=== PATIENT | female | born 1990 | race African-American/Black ===

== ENCOUNTER 2021-01-08 05:55 | Inpatient (IN) | payer OTHER ==
[2021-01-08] MEDS ORDERED: ELECTROLYTE-148 SOLN 1,000 ML IV ONE (06:25)
[2021-01-08 06:34] VITALS: BMI 33.5
[2021-01-08] MEDS ORDERED: ELECTROLYTE-148 SOLN 1,000 ML IV SCH (06:55)
[2021-01-08] MEDS ORDERED: CITRIC ACID/SODIUM CITRATE 30 ML UNIT-DOSE CUP PO ONE (07:15)
[2021-01-08] MEDS ORDERED: morphine SULFATE/PF 0.5 MG/ML (2cc Syringe - QUVA) ONE (07:58)
[2021-01-08] MEDS ORDERED: ceFAZolin SODIUM 1 GM VIAL ONE (07:59)
[2021-01-08] MEDS ORDERED: ONDANSETRON 4 MG/2 ML VIAL ONE (07:59)
[2021-01-08] MEDS ORDERED: PROPOFOL 20 ML ONE (08:01)
[2021-01-08] MEDS ORDERED: SUCCINYLCHOLINE CHLORIDE 200 MG/10 ML SYRINGE ONE (08:01)
[2021-01-08] MEDS ORDERED: OXYTOCIN 10 UNITS/ML VIAL ONE (08:25)
[2021-01-08] MEDS ORDERED: METHYLERGONOVINE MALEATE 0.2 MG/1 ML AMP IM PRN (09:27)
[2021-01-08] MEDS ORDERED: PCA PUMP NR ONE (09:27)
[2021-01-08] MEDS ORDERED: IBUPROFEN 800 MG/8 ML IJ IVPB PRN (09:27)
[2021-01-08] MEDS ORDERED: OXYTOCIN 20 UNITS in 0.9% NS 20 UNIT/1,000 ML INFUS.BAG IV SCH (09:30)
[2021-01-08] MEDS ORDERED: DEXTROSE 5%-LACTATED RINGERS 1,000 ML IV SCH (09:30)
[2021-01-08] MEDS ORDERED: ACETAMINOPHEN 500 MG TABLET (FP) PO PRN (09:31)
[2021-01-08] MEDS ORDERED: KETOROLAC TROMETHAMINE 30 MG/1 ML VIAL IVPUSH ONE (09:33)
[2021-01-08] MEDS ORDERED: KETOROLAC TROMETHAMINE 30 MG/1 ML VIAL ONE (10:32)
[2021-01-08] MEDS: SIMETHICONE 80 MG TAB.CHEW (FP) PO PRN ×2 (15:16→20:19)
[2021-01-08] MEDS: ACETAMINOPHEN 325 MG TABLET (FP) PO PRN ×2 (15:16→20:18)
[2021-01-08] MEDS: IBUPROFEN 600 MG TABLET (FP) PO PRN ×2 (15:16→20:17)
[2021-01-08] MEDS: SENNOSIDES/DOCUSATE COMBO (SENNA PLUS) TABLET (UD) PO PRN (20:17)
[2021-01-09] MEDS: SIMETHICONE 80 MG TAB.CHEW (FP) PO PRN ×3 (00:26→21:09)
[2021-01-09] MEDS: ACETAMINOPHEN 325 MG TABLET (FP) PO PRN ×4 (00:27→21:09)
[2021-01-09] MEDS: IBUPROFEN 600 MG TABLET (FP) PO PRN ×4 (00:27→21:09)
[2021-01-09 08:30] LABS: BASO % 0.3 % (0-2.0); EOS % 0.8 % (0-4.5); HEMATOCRIT 31.3 % (32.4-45.2); HEMOGLOBIN 10.5 GM/dL (10.7-15.3); LYMPH % 10.7 % (8-40); MCH 27.3 pg (25.7-33.7); MCHC 33.4 g/dl (32.0-36.0); MEAN CELL VOLUME 81.7 fl (80-96); MEAN PLT VOLUME 9.4 fl (7.5-11.1); NEUT % 82.2 % (42.8-82.8); PLATELET COUNT 172 K/MM3 (134-434); RBC 3.83 M/mm3 (3.60-5.2); RDW 19.8 % (11.6-15.6); WHITE BLOOD COUNT 7.4 K/mm3 (4.0-10.0)
[2021-01-09] MEDS ORDERED: BISACODYL 10 MG SUPP.RECT RC PRN (09:27)
[2021-01-09] MEDS: oxyCODONE HCL 5 MG TABLET PO PRN (21:58)
[2021-01-10] MEDS: ACETAMINOPHEN 325 MG TABLET (FP) PO PRN (05:56)
[2021-01-10] MEDS: IBUPROFEN 600 MG TABLET (FP) PO PRN ×2 (05:56→13:35)
[2021-01-10] MEDS: SIMETHICONE 80 MG TAB.CHEW (FP) PO PRN ×3 (06:00→18:09)
[2021-01-10] MEDS: oxyCODONE HCL 5 MG TABLET PO PRN ×3 (06:00→18:06)
[2021-01-10] MEDS: SENNOSIDES/DOCUSATE COMBO (SENNA PLUS) TABLET (UD) PO PRN (18:09)
[2021-01-11] MEDS: oxyCODONE HCL 5 MG TABLET PO PRN ×5 (00:48→22:52)
[2021-01-11] MEDS: ACETAMINOPHEN 325 MG TABLET (FP) PO PRN ×5 (00:48→22:53)
[2021-01-11] MEDS: SIMETHICONE 80 MG TAB.CHEW (FP) PO PRN ×4 (08:45→22:54)
[2021-01-12] MEDS: oxyCODONE HCL 5 MG TABLET PO PRN ×2 (05:02→10:37)
[2021-01-12] MEDS: ACETAMINOPHEN 325 MG TABLET (FP) PO PRN (05:03)
[2021-01-12] MEDS: SIMETHICONE 80 MG TAB.CHEW (FP) PO PRN ×2 (05:03→10:35)
[2021-01-12 08:46] VITALS: BP 126/70; PULSE 57; TEMP 98.6
[2021-01-12] MEDS: IBUPROFEN 600 MG TABLET (FP) PO PRN (10:36)
== END 2021-01-12 12:10 | disposition home or self-care (01) | DRG 540 ==
LOC: JLDR 05:55 → J3W 11:00
PROVIDERS: ADMIT Obstetrics & Gynecology; ATTEND Obstetrics & Gynecology
PROC: 10D00Z1 Extraction of Products of Conception, Low, Open Approach (ICD-10-PCS; principal; 2021-01-08)
DX: O34.211 Maternal care for low transverse scar from previous cesarean delivery (principal); O44.43 Low lying placenta NOS or without hemorrhage, third trimester; O69.2XX0 Labor and delivery complicated by other cord entanglement, with compression, not applicable or unspecified; Z3A.38 38 weeks gestation of pregnancy; Z37.0 Single live birth
CPT/HCPCS: 36415; 80053; 85025; 85610; 85730; 86780; 86850; 86900; 86901; 88307-TC; C9803; U0003; U0005